=== PATIENT | male | born 1975 | race Caucasian/White ===

== ENCOUNTER 2018-03-02 12:16 | Inpatient (IN) | payer OTHER ==
[~2018-03-02] VITALS: Ht 182.9 cm; Wt 208.9 kg
--- NOTE | ~2018-03-02 | MORECARE ---
CASE MANAGEMENT DISCHARGE SUMMARY PATIENT: HUMBERTO BATES UNIT: [id number] ADM DATE: 03/04/18 AGE: 42 : [birth year] SEX: M ROOM/BED: D.2208 AUTHOR: SEBASTIÁN TURNER PHYSICIAN: REFERRING PHYSICIAN: MARIA R ELIZABETH MD DATE OF SERVICE: 03/07/18 Discharge Plan Patient Name: HUMBERTO BATES Facility: [facility]:[place] : 1975 Planned Disposition: Home Health Service Anticipated Discharge Date: Discharge Date: 03/06/2018 Expected LOS: Initial Reviewer: [email or web address] Initial Review Date: 03/02/2018 Generated: 03/07/18 12:26 pm Comments DCP- Discharge Planning Updated by [email or web address]: Nai Crowell on 03/07/18 10:[address] Lina with [facility] called and stated that he has a 10,000.00 deductible and then a 30% co pay, she called the patient and he did not want home health, nor did he want to pay anything. DCP- Discharge Planning Updated by [email or web address]: Nai Crowell on 03/06/18 1:[address] RECEIVED A CALL FROM [facility] STATING THAT THEY DO NOT TAKE HIS INSURANCE, REFERRAL SENT TO [email or web address] DCP- Discharge Planning Updated by [email or web address]: Nai Crowell on 03/06/18 9:[address] Patient Name: HUMBERTO BATES Admission Status: ER Accout number: [id number] Admission Date: 03-04-2018 : 1975 Admission Diagnosis:ACUTE PYELONEPHRITIS Attending: MARIA R ELIZABETH Current LOS: 2 Anticipated DC Date: Planned Disposition: Home Health Service Primary Insurance: [facility] [employer] Discharge Planning Comments: CM met with patient to assess discharge planning needs. Patient lives independently with his mother and father. He stated that he does not use or need any DME. He will get a glucometer when he is discharged. His mother will be his class a regional drivers home. He stated his home is safe to return. He will be set up with home health. PEGGY with [facility]. I will fax clinical to them. CM will continue to follow and assist with DC planning Rounding Machine Operator: Nai Crowell DCP- Discharge Planning Updated by [email or web address]: Kelsi Gardner on 03/03/18 3:[address] LATE ENTRY 1445 DISCHARGE PLANNING CONSULT RECEIVED. PATIENT SCHEDULED FOR SURGERY FOR 2 DAYS. SURGERY SCHEDULE CANNOT ACCOMMODATE. HE IS SCHEDULED AGAIN TOMORROW. CM WILL ASSESS TOMORROW DUE TO NUMBER OF DISCHARGES FOR TODAY. CM NOTED PATIENT'S PULSE HAS BEEN PRIMARY BETWEEN 120- MID 130'S. CM SPOKE WITH PRIMARY NURSE AND TYPE ROLLING MACHINE OPERATOR. PATIENT IS ON TELEMETRY. NO REFERENCE BY MD'S AT THIS TIME. CM SPOKE WITH DR ELIZABETH HE WAS ROUNDING THIS PM. HE WAS NOT COGNIZANT AT THIS TIME. EKG ORDERED. HE IS IN HOUSE AND WILL SEE THE PATIENT. CM TO FOLLOW FOR DISCHARGE PLANNING. PATIENT REPORTEDLY LIVES WITH HIS PARENTS. CM TO ASSESS AND ASSIST W/ DISCHARGE PLANS. DCPIA - Discharge Planning Initial Assessment Updated by [email or web address]: Nai Crowell on 03/06/18 10:25 am * Is the patient Alert and Oriented? Yes * How many steps to enter\exit or inside your home? FEW * PCP CLARA * Pharmacy [facility] * Preadmission Environment Home with Family * ADLs Independent * Equipment None * List name and contact numbers for known caregivers / representatives who currently or will assist patient after discharge: LILY BATES [phone] * Verbal permission to speak to the caregivers and representatives has been obtained from the patient. N/A * Community resources currently utilized None * Additional services required to return to the preadmission environment? Yes * Can the patient safely return to the preadmission environment? Yes * Has this patient been hospitalized within the prior 30 days at any hospital? No Last DP export: 03/06/18 1:44 Patient Name: HUMBERTO BATES Page 02253 at 1126 All edits/amendments must be made on the electronic document DICTATION DATE: 03/07/18 112 NETWORK ADMINISTRATOR: MAO 03/07/18 112 RPT#: [id number] DC DATE:03/06/18 STATUS: DIS IN [facility] [address] [place] [address] END OF REPORT
--- NOTE | ~2018-03-02 | MORECARE ---
CASE MANAGEMENT DISCHARGE SUMMARY PATIENT: HUMBERTO BATES UNIT: [id number] ADM DATE: 03/04/18 AGE: 42 : [birth year] SEX: M ROOM/BED: D.2208 AUTHOR: SEBASTIÁN TURNER PHYSICIAN: REFERRING PHYSICIAN: MARIA R ELIZABETH MD DATE OF SERVICE: 03/06/18 Discharge Plan Patient Name: HUMBERTO BATES Facility: [facility]:[place] : 1975 Planned Disposition: Home Health Service Anticipated Discharge Date: Discharge Date: 03/06/2018 Expected LOS: Initial Reviewer: [email or web address] Initial Review Date: 03/02/2018 Generated: 03/06/18 3:44 pm Comments DCP- Discharge Planning Updated by [email or web address]: Nai Crowell on 03/06/18 1:[address] RECEIVED A CALL FROM [facility] STATING THAT THEY DO NOT TAKE HIS INSURANCE, REFERRAL SENT TO [facility] DCP- Discharge Planning Updated by [email or web address]: Nai Crowell on 03/06/18 9:[address] Patient Name: HUMBERTO BATES Admission Status: ER Accout number: [id number] Admission Date: 03-04-2018 : 1975 Admission Diagnosis:ACUTE PYELONEPHRITIS Attending: MARIA R ELIZABETH Current LOS: 2 Anticipated DC Date: Planned Disposition: Home Health Service Primary Insurance: [facility] [employer] RU[employer] Discharge Planning Comments: CM met with patient to assess discharge planning needs. Patient lives independently with his mother and father. He stated that he does not use or need any DME. He will get a glucometer when he is discharged. His mother will be his lifter/driver home. He stated his home is safe to return. He will be set up with [facility] health. PEGGY with [facility]. I will fax clinical to them. CM will continue to follow and assist with DC planning Field Gauger: Nai Crowell DCP- Discharge Planning Updated by [email or web address]: Kelsi Gardner on 03/03/18 3:[address] LATE ENTRY 8442 DISCHARGE PLANNING CONSULT RECEIVED. PATIENT SCHEDULED FOR SURGERY FOR 2 DAYS. SURGERY SCHEDULE CANNOT ACCOMMODATE. HE IS SCHEDULED AGAIN TOMORROW. CM WILL ASSESS TOMORROW DUE TO NUMBER OF DISCHARGES FOR TODAY. CM NOTED PATIENT'S PULSE HAS BEEN PRIMARY BETWEEN 120- MID 130'S. CM SPOKE WITH PRIMARY NURSE AND LANDSCAPING MANAGER. PATIENT IS ON TELEMETRY. NO REFERENCE BY MD'S AT THIS TIME. CM SPOKE WITH DR ELIZABETH HE WAS ROUNDING THIS PM. HE WAS NOT COGNIZANT AT THIS TIME. EKG ORDERED. HE IS IN HOUSE AND WILL SEE THE PATIENT. CM TO FOLLOW FOR DISCHARGE PLANNING. PATIENT REPORTEDLY LIVES WITH HIS PARENTS. CM TO ASSESS AND ASSIST W/ DISCHARGE PLANS. DCPIA - Discharge Planning Initial Assessment Updated by [email or web address]: Nai Crowell on 03/06/18 10:25 am * Is the patient Alert and Oriented? Yes * How many steps to enter\exit or inside your home? FEW * PCP CLARA * Pharmacy [facility] * Preadmission Environment Home with Family * ADLs Independent * Equipment None * List name and contact numbers for known caregivers / representatives who currently or will assist patient after discharge: LILY BATES [phone] * Verbal permission to speak to the caregivers and representatives has been obtained from the patient. N/A * Community resources currently utilized None * Additional services required to return to the preadmission environment? Yes * Can the patient safely return to the preadmission environment? Yes * Has this patient been hospitalized within the prior 30 days at any hospital? No External Providers External Provider: [facility] Next Contact Date: Service Request Date: Service Type: Resolution: Reviewer: Comments: Last DP export: 03/06/18 9:41 Patient Name: HUMBERTO BATES Page [id number] at 1444 All edits/amendments must be made on the electronic document DICTATION DATE: 03/06/181443 CONVEYOR LINE BAKERY WORKER: MAO 03/06/18 144 RPT#: [id number] DC DATE:03/06/18 STATUS: DIS IN [facility] [address] [place] [address] END OF REPORT
--- NOTE | ~2018-03-02 | MORECARE ---
CASE MANAGEMENT DISCHARGE SUMMARY PATIENT: HUMBERTO BATES UNIT: [id number] ADM DATE: 03/04/18 AGE: 42 : [birth year] SEX: M ROOM/BED: D.2208 AUTHOR: SEBASTIÁN TURNER PHYSICIAN: REFERRING PHYSICIAN: MARIA R ELIZABETH MD DATE OF SERVICE: 03/06/18 Discharge Plan Patient Name: HUMBERTO BATES Facility: [facility]:[place] : 1975 Planned Disposition: Home Health Service Anticipated Discharge Date: Discharge Date: Expected LOS: Initial Reviewer: [email or web address] Initial Review Date: 03/02/2018 Generated: 03/06/18 11:40 am Comments DCP- Discharge Planning Updated by [email or web address]: Nai Crowell on 03/06/18 9:[address] Patient Name: HUMBERTO BATES Admission Status: ER Accout number: [id number] Admission Date: 03-04-2018 : 1975 Admission Diagnosis:ACUTE PYELONEPHRITIS Attending: MARIA R ELIZABETH Current LOS: 2 Anticipated DC Date: Planned Disposition: Home Health Service Primary Insurance: [facility] [employer] Discharge Planning Comments: CM met with patient to assess discharge planning needs. Patient lives independently with his mother and father. He stated that he does not use or need any DME. He will get a glucometer when he is discharged. His mother will be his reefer truck driver home. He stated his home is safe to return. He will be set up with home health. PEGGY with [facility] health. I will fax clinical to them. SUDHAKAR will continue to follow and assist with DC planning Guard Driver: Nai Crowell DCP- Discharge Planning Updated by [email or web address]: Kelsi Gardner on 03/03/18 3:[address] LATE ENTRY 5870 DISCHARGE PLANNING CONSULT RECEIVED. PATIENT SCHEDULED FOR SURGERY FOR 2 DAYS. SURGERY SCHEDULE CANNOT ACCOMMODATE. HE IS SCHEDULED AGAIN TOMORROW. CM WILL ASSESS TOMORROW DUE TO NUMBER OF DISCHARGES FOR TODAY. CM NOTED PATIENT'S PULSE HAS BEEN PRIMARY BETWEEN 120- MID 130'S. CM SPOKE WITH PRIMARY NURSE AND PUBLIC RELATIONS COUNSELOR. PATIENT IS ON TELEMETRY. NO REFERENCE BY MD'S AT THIS TIME. CM SPOKE WITH DR ELIZABETH HE WAS ROUNDING THIS PM. HE WAS NOT COGNIZANT AT THIS TIME. EKG ORDERED. HE IS IN HOUSE AND WILL SEE THE PATIENT. CM TO FOLLOW FOR DISCHARGE PLANNING. PATIENT REPORTEDLY LIVES WITH HIS PARENTS. CM TO ASSESS AND ASSIST W/ DISCHARGE PLANS. DCPIA - Discharge Planning Initial Assessment Updated by [email or web address]: Nai Crowell on 03/06/18 10:25 am * Is the patient Alert and Oriented? Yes * How many steps to enter\exit or inside your home? FEW * PCP CLARA * Pharmacy [facility] * Preadmission Environment Home with Family * ADLs Independent * Equipment None * List name and contact numbers for known caregivers / representatives who currently or will assist patient after discharge: LILY BATES [phone] * Verbal permission to speak to the caregivers and representatives has been obtained from the patient. N/A * Community resources currently utilized None * Additional services required to return to the preadmission environment? Yes * Can the patient safely return to the preadmission environment? Yes * Has this patient been hospitalized within the prior 30 days at any hospital? No Last DP export: 03/06/18 9:28 Patient Name: HUMBERTO BATES Page 53531 at 1041 All edits/amendments must be made on the electronic document DICTATION DATE: 03/06/18 1040 MOVIE STAR: MAO 03/06/18 1040 RPT#: [id number] DE DATE: STATUS: ADM IN [facility] [address] [place] [address] END OF REPORT
--- NOTE | ~2018-03-02 | HP ---
PATIENT: HUMBERTO BATES MEDICAL RECORD: [id number] ACCOUNT: [id number] LOCATION:D.MS [address] : [birth year] ADMISSION DATE: 03/02/18 PCP: MARIA R ELIZABETH MD HISTORY AND PHYSICAL EXAMINATION DATE OF ADMISSION: 03/02/2018 CHIEF COMPLAINT: Cough, fever, chills, right flank pain. HISTORY: This is a 42-year-old morbidly obese white male, who states he started having a cough over a week ago. In the last day or two, he has noted fevers and right flank pain as well. He has had some urinary frequency, but states he has had little urinary output. Apparently, he went to [place] first and then was brought here due to his illness. His temperature was 102.4. Heart rate was 125 down in the ER. A CT of the abdomen and pelvis showed a 2-mm calculus at the right ureterovesical junction with some noted hydronephrosis. He also has multiple bilateral intrarenal calculi that are nonobstructing at this time. Urine was dark yellow and cloudy with some protein and blood and a few bacteria. His white count was elevated. His BUN was 20, his creatinine 2.6. He is admitted for further care. PAST MEDICAL AND SURGICAL HISTORY: He has morbid obesity. He reports a history of kidney stones over 15 years ago. PAST SURGICAL HISTORY: Appendectomy, inguinal hernia repair as a child, tubes in his ears as a child. HOME MEDICATIONS: None. DRUG ALLERGIES: None. SOCIAL HISTORY: He is not working. He lives with his parents. He is not . HABITS: Never smoked. No alcohol or drugs. FAMILY HISTORY: Father is alive with diabetes and hypertension. Mother is alive with osteoarthritis and hypertension. REVIEW OF SYSTEMS: GENERAL: No major weight changes. HEENT: No particular sinus or allergy problems. RESPIRATORY: No history of emphysema or asthma. CARDIAC: No chest pain or palpitations. GASTROINTESTINAL: Denies diarrhea, constipation, or heartburn. GENITOURINARY: Remote history of kidney stones. MUSCULOSKELETAL: No significant joint aches or pains. NEUROLOGIC: No migraines or seizures. PSYCHIATRIC: Denies depression or melancholia. PHYSICAL EXAMINATION: VITAL SIGNS: Temperature 102.4, heart rate 125, blood pressure 130/85, O2 sat 95% on room air. GENERAL: He is morbidly obese. Does not appear in acute distress at this time. HEENT: Grossly within normal limits. HISTORY AND PHYSICAL [id number] HUMBERTO BATES NECK: Supple. No JVD or bruit. HEART: Tachycardia without murmur. LUNGS: Clear. ABDOMEN: Obese. No significant tenderness to palpation. No guarding. No rebound. No mass. BACK: With some right CVA tenderness. LABORATORY WORK: CBC with a white count of 15,500, hemoglobin 13.2, hematocrit 38.1, platelets number 102,000. Basic metabolic panel is all okay except his creatinine is elevated at 2.6. Liver functions are all okay. Influenza A and B are both negative. Urinalysis shows dark yellow, cloudy urine with 2+ protein, 1+ blood, trace leukocyte esterase, 0-5 red blood cells, 5-10 white blood cells, few bacteria. Chest x-ray shows no active disease. CT of the abdomen and pelvis showed a 2-mm calculus at the right ureterovesical junction with hydronephrosis noted. There were multiple bilateral intrarenal calculi. ASSESSMENT: 1. Right ureterovesical stone. 2. Fever. 3. Elevated white blood cell count. 4. Presumed acute kidney injury. 5. Morbid obesity. PLAN: Dr. Scott has been consulted and he has already seen the patient. We will give patient IV fluids, Flomax, IV Rocephin. Obtain urine and blood cultures. Zofran p.r.n. and pain control. Other tests and procedures as warranted. TRANSINT:[id number] Voice Confirmation ID: [id number] DOCUMENT ID: [id number] MARIA R ELIZABETH MD at 2336 CC: [id number] DICTATION DATE: 03/02/182016 SOFT SUGAR CUTTER: 03/02/182058 ADM IN [facility] [address] [place] [address]
--- NOTE | ~2018-03-02 | MORECARE ---
CASE MANAGEMENT DISCHARGE SUMMARY PATIENT: HUMBERTO BATES UNIT: [id number] ADM DATE: 03/04/18 AGE: 42 : [birth year] SEX: M ROOM/BED: D.2208 AUTHOR: YUE,DOC PHYSICIAN: REFERRING PHYSICIAN: MARIA R ELIZABETH MD DATE OF SERVICE: 03/06/18 Discharge Plan Patient Name: HUMBERTO BATES Facility: [facility]:[place] : 1975 Planned Disposition: Home Health Service Anticipated Discharge Date: Discharge Date: Expected LOS: Initial Reviewer: [email or web address] Initial Review Date: 03/02/2018 Generated: 03/06/18 11:28 am Comments DCP- Discharge Planning Updated by [email or web address]: Kelsi Gardner on 03/03/18 3:[address] LATE ENTRY 1445 DISCHARGE PLANNING CONSULT RECEIVED. PATIENT SCHEDULED FOR SURGERY FOR 2 DAYS. SURGERY SCHEDULE CANNOT ACCOMMODATE. HE IS SCHEDULED AGAIN TOMORROW. CM WILL ASSESS TOMORROW DUE TO NUMBER OF DISCHARGES FOR TODAY. CM NOTED PATIENT'S PULSE HAS BEEN PRIMARY BETWEEN 120- MID 130'S. CM SPOKE WITH PRIMARY NURSE AND AVIATION SURVIVAL TECHNICIAN. PATIENT IS ON TELEMETRY. NO REFERENCE BY MD'S AT THIS TIME. CM SPOKE WITH DR ELIZABETH HE WAS ROUNDING THIS PM. HE WAS NOT COGNIZANT AT THIS TIME. EKG ORDERED. HE IS IN HOUSE AND WILL SEE THE PATIENT. CM TO FOLLOW FOR DISCHARGE PLANNING. PATIENT REPORTEDLY LIVES WITH HIS PARENTS. CM TO ASSESS AND ASSIST W/ DISCHARGE PLANS. DCPIA - Discharge Planning Initial Assessment Updated by [email or web address]: Nai Crowell on 03/06/18 10:25 am * Is the patient Alert and Oriented? Yes * How many steps to enter\exit or inside your home? FEW * PCP CLARA * Pharmacy [facility] * Preadmission Environment Home with Family * ADLs Independent * Equipment None * List name and contact numbers for known caregivers / representatives who currently or will assist patient after discharge: LILY BATES [phone] * Verbal permission to speak to the caregivers and representatives has been obtained from the patient. N/A * Community resources currently utilized None * Additional services required to return to the preadmission environment? Yes * Can the patient safely return to the preadmission environment? Yes * Has this patient been hospitalized within the prior 30 days at any hospital? No Last DP export: 03/06/18 8:59 Patient Name: HUMBERTO BATES Page 57526 at 1029 All edits/amendments must be made on the electronic document DICTATION DATE: 03/06/18 1028 PROMOTIONAL ADVERTISING ASSISTANT: MAO 03/06/18 1028 RPT#: [id number] DC DATE: STATUS: ADM IN [facility] [address] [place] [address] END OF REPORT
--- NOTE | ~2018-03-02 | MORECARE ---
CASE MANAGEMENT DISCHARGE SUMMARY PATIENT: HUMBERTO BATES UNIT: [id number] ADM DATE: 03/04/18 AGE: 42 : [birth year] SEX: M ROOM/BED: D.2208 AUTHOR: SEBASTIÁN TURNER PHYSICIAN: REFERRING PHYSICIAN: MARIA R ELIZABETH MD DATE OF SERVICE: 03/08/18 Discharge Plan Patient Name: HUMBERTO BATES Facility: [facility]:[place] : 1975 Planned Disposition: Home Health Service Anticipated Discharge Date: Discharge Date: 03/06/2018 Expected LOS: Initial Reviewer: [email or web address] Initial Review Date: 03/02/2018 Generated: 03/08/18 1:18 pm Comments DCP- Discharge Planning Updated by [email or web address]: Nai Crowell on 03/07/18 10:[address] Lina with [facility] called and stated that he has a 10,000.00 deductible and then a 30% co pay, she called the patient and he did not want home health, nor did he want to pay anything. DCP- Discharge Planning Updated by [email or web address]: Nai Crowell on 03/06/18 1:[address] RECEIVED A CALL FROM [facility] STATING THAT THEY DO NOT TAKE HIS INSURANCE, REFERRAL SENT TO [facility] DCP- Discharge Planning Updated by [email or web address]: Nai Crowell on 03/06/18 9:[address] Patient Name: HUMBERTO BATES Admission Status: ER Accout number: [id number] Admission Date: 03-04-2018 : 1975 Admission Diagnosis:ACUTE PYELONEPHRITIS Attending: MARIA R ELIZABETH Current LOS: 2 Anticipated DC Date: Planned Disposition: Home Health Service Primary Insurance: [facility] [employer] RU[employer] Discharge Planning Comments: CM met with patient to assess discharge planning needs. Patient lives independently with his mother and father. He stated that he does not use or need any DME. He will get a glucometer when he is discharged. His mother will be his minibus driver home. He stated his home is safe to return. He will be set up with home health. PEGGY with [email or web address]. I will fax clinical to them. CM will continue to follow and assist with DC planning Real Estate Instructor: Nai Crowell DCP- Discharge Planning Updated by [email or web address]: Kelsi Gardner on 03/03/18 3:[address] LATE ENTRY 1445 DISCHARGE PLANNING CONSULT RECEIVED. PATIENT SCHEDULED FOR SURGERY FOR 2 DAYS. SURGERY SCHEDULE CANNOT ACCOMMODATE. HE IS SCHEDULED AGAIN TOMORROW. CM WILL ASSESS TOMORROW DUE TO NUMBER OF DISCHARGES FOR TODAY. CM NOTED PATIENT'S PULSE HAS BEEN PRIMARY BETWEEN 120- MID 130'S. CM SPOKE WITH PRIMARY NURSE AND OCCUP THERAPIST. PATIENT IS ON TELEMETRY. NO REFERENCE BY MD'S AT THIS TIME. CM SPOKE WITH DR ELIZABETH HE WAS ROUNDING THIS PM. HE WAS NOT COGNIZANT AT THIS TIME. EKG ORDERED. HE IS IN HOUSE AND WILL SEE THE PATIENT. CM TO FOLLOW FOR DISCHARGE PLANNING. PATIENT REPORTEDLY LIVES WITH HIS PARENTS. CM TO ASSESS AND ASSIST W/ DISCHARGE PLANS. DCPIA - Discharge Planning Initial Assessment Updated by [email or web address]: Nai Crowell on 03/06/18 10:25 am * Is the patient Alert and Oriented? Yes * How many steps to enter\exit or inside your home? FEW * PCP CLARA * Pharmacy [facility] * Preadmission Environment Home with Family * ADLs Independent * Equipment None * List name and contact numbers for known caregivers / representatives who currently or will assist patient after discharge: LILY BATES [phone] * Verbal permission to speak to the caregivers and representatives has been obtained from the patient. N/A * Community resources currently utilized None * Additional services required to return to the preadmission environment? Yes * Can the patient safely return to the preadmission environment? Yes * Has this patient been hospitalized within the prior 30 days at any hospital? No Last DP export: 03/07/18 10:26 Patient Name: HUMBERTO BATES Page 48804 at 1218 All edits/amendments must be made on the electronic document DICTATION DATE: 03/08/187 CHARGE HAND: MAO 03/08/187 RPT#: [id number] DC DATE:03/06/18 STATUS: DIS IN [facility] [address] [place] [address] END OF REPORT
--- NOTE | ~2018-03-02 | MORECARE ---
CASE MANAGEMENT DISCHARGE SUMMARY PATIENT: HUMBERTO BATES UNIT: [id number] ADM DATE: 03/04/18 AGE: 42 : [birth year] SEX: M ROOM/BED: D.2208 AUTHOR: SEBASTIÁN TURNER PHYSICIAN: REFERRING PHYSICIAN: MARIA R ELIZABETH MD DATE OF SERVICE: 03/06/18 Discharge Plan Patient Name: HUMBERTO BATES Facility: [facility]:[place] : 1975 Planned Disposition: Home Health Service Anticipated Discharge Date: Discharge Date: Expected LOS: Initial Reviewer: [email or web address] Initial Review Date: 03/02/2018 Generated: 03/06/18 10:59 am Comments DCP- Discharge Planning Updated by [email or web address]: Kelsi Gardner on 03/03/18 3:[address] LATE ENTRY 7712 DISCHARGE PLANNING CONSULT RECEIVED. PATIENT SCHEDULED FOR SURGERY FOR 2 DAYS. SURGERY SCHEDULE CANNOT ACCOMMODATE. HE IS SCHEDULED AGAIN TOMORROW. CM WILL ASSESS TOMORROW DUE TO NUMBER OF DISCHARGES FOR TODAY. CM NOTED PATIENT'S PULSE HAS BEEN PRIMARY BETWEEN 120- MID 130'S. CM SPOKE WITH PRIMARY NURSE AND LEVI MAKER. PATIENT IS ON TELEMETRY. NO REFERENCE BY MD'S AT THIS TIME. CM SPOKE WITH DR ELIZABETH HE WAS ROUNDING THIS PM. HE WAS NOT COGNIZANT AT THIS TIME. EKG ORDERED. HE IS IN HOUSE AND WILL SEE THE PATIENT. CM TO FOLLOW FOR DISCHARGE PLANNING. PATIENT REPORTEDLY LIVES WITH HIS PARENTS. CM TO ASSESS AND ASSIST W/ DISCHARGE PLANS. External Providers External Provider: [facility] Next Contact Date: Service Request Date: Service Type: Resolution: Reviewer: Comments: Patient Name: HUMBERTO BAETS Page 47916 at 0959 All edits/amendments must be made on the electronic document DICTATION DATE: 03/06/18957 MEDICAL ASSISTANT SUPERVISOR: MAO 03/06/18957 RPT#: [id number] DC DATE: STATUS: ADM IN [facility] [address] [place] [address] END OF REPORT
[2018-03-02 13:07] LABS: ANION GAP 15.6 mmol/L (8-16); BILIRUBIN - TOTAL 0.99 mg/dL (0.2-1.3); CALCIUM 8.5 mg/dL (8.5-10.1); CARBON DIOXIDE 23.3 mmol/L (21.0-32.0); CREATININE - SERUM 2.6 mg/dL (0.6-1.3); POTASSIUM - SERUM 3.9 mmol/L (3.5-5.1); PROTEIN - SERUM 7.8 g/dL (6.4-8.2)
[2018-03-02 13:23] LABS: BASOPHILS 0 % (0-2); EOSINOPHILS 0 % (0-7); HEMATOCRIT 38.1 % (42.0-54.0); HEMOGLOBIN 13.2 g/dL (13.5-17.5); LYMPHOCYTES 4.7 % (15-50); MCH 30.2 pg (26.0-34.0); MCHC 34.6 g/dL (31.0-37.0); MCV 87.2 fL (80.0-100.0); MEAN PLATELET VOLUME 11.7 fL (7.4-10.4); MONOCYTES 6.2 % (2-11); NEUTROPHILS 88.7 % (40-80); PLATELET COUNT 102 10x3/uL (130-400); RBC 4.37 10x6/uL (4.20-6.10); RDW 15.1 % (11.5-14.5); WBC 15.5 10x3/uL (4.8-10.8)
[2018-03-02 13:24] LABS: IMMATURE GRANULOCYTES 0.4 % (0-5)
[2018-03-02 13:53] LABS: APPEARANCE CLOUDY (CLEAR); BILIRUBIN NEGATIVE (NEGATIVE); COLOR DK YELLOW (YELLOW); GLUCOSE NEGATIVE (NEGATIVE); KETONE NEGATIVE (NEGATIVE); NITRITE NEGATIVE (NEGATIVE); PROTEIN 2+ mg/dL (NEGATIVE)
[2018-03-02 13:54] LABS: BACTERIA FEW /hpf (NONE SEEN); EPITHELIAL CELLS OCC /hpf (0-5); RED CELLS - URINE 0-5 /hpf (0-5)
[2018-03-02 17:35] VITALS: BP 128/84
[2018-03-02 20:00] VITALS: BP 164/77
[2018-03-02 21:51] VITALS: BP 164/77; Ht 182.9 cm; Wt 208.9 kg
[2018-03-03] VITALS (8 sets, daily range): BP systolic 102–142; BP diastolic 68–87
[2018-03-03 05:32] LABS: BASOPHILS 0.1 % (0-2); EOSINOPHILS 0.1 % (0-7); HEMOGLOBIN 11.5 g/dL (13.5-17.5); IMMATURE GRANULOCYTES 0.5 % (0-5); LYMPHOCYTES 6.2 % (15-50); MCH 29.7 pg (26.0-34.0); MCHC 33.8 g/dL (31.0-37.0); MCV 87.9 fL (80.0-100.0); MEAN PLATELET VOLUME 12.5 fL (7.4-10.4); MONOCYTES 6.7 % (2-11); NEUTROPHILS 86.4 % (40-80); RBC 3.87 10x6/uL (4.20-6.10)
[2018-03-03 05:37] LABS: PLATELET COUNT 71 10x3/uL (130-400); WBC 9.2 10x3/uL (4.8-10.8)
[2018-03-03 05:45] LABS: ANION GAP 17.2 mmol/L (8-16); CARBON DIOXIDE 21.6 mmol/L (21.0-32.0); CREATININE - SERUM 2.7 mg/dL (0.6-1.3); POTASSIUM - SERUM 3.8 mmol/L (3.5-5.1)
[2018-03-03 05:52] LABS: INR 1.43 (0.85-1.17); PROTIME 16.9 SECONDS (11.6-15.0)
[2018-03-04 04:00] VITALS: BP 120/81
[2018-03-04 04:38] LABS: HEMATOCRIT 33.4 % (42.0-54.0); MCH 29.4 pg (26.0-34.0); MCHC 32.9 g/dL (31.0-37.0); MCV 89.3 fL (80.0-100.0); MEAN PLATELET VOLUME 12.4 fL (7.4-10.4); RBC 3.74 10x6/uL (4.20-6.10); RDW 15.3 % (11.5-14.5); WBC 7.6 10x3/uL (4.8-10.8)
[2018-03-04 04:47] LABS: CALCIUM 7.9 mg/dL (8.5-10.1); CARBON DIOXIDE 23.7 mmol/L (21.0-32.0); CREATININE - SERUM 2.4 mg/dL (0.6-1.3); POTASSIUM - SERUM 3.7 mmol/L (3.5-5.1)
[2018-03-04 08:42] VITALS: BP 111/70
[2018-03-04 12:25] VITALS: BP 143/79
[2018-03-04 15:54] LABS: APPEARANCE CLEAR (CLEAR); BILIRUBIN NEGATIVE (NEGATIVE); COLOR YELLOW (YELLOW); GLUCOSE NEGATIVE (NEGATIVE); KETONE NEGATIVE (NEGATIVE); NITRITE NEGATIVE (NEGATIVE); PROTEIN 1+ mg/dL (NEGATIVE); SPECIFIC GRAVITY 1.015 (1.005-1.020)
[2018-03-04 15:55] LABS: RED CELLS - URINE 0-5 /hpf (0-5)
[2018-03-04 15:56] LABS: BACTERIA FEW /hpf (NONE SEEN); EPITHELIAL CELLS 0-5 /hpf (0-5)
[2018-03-04 16:40] VITALS: BP 135/83
[2018-03-04 20:00] VITALS: BP 126/83
[2018-03-05] VITALS: BP 157/80
[2018-03-05 05:00] VITALS: BP 132/93
[2018-03-05 06:10] LABS: HEMATOCRIT 34.1 % (42.0-54.0); HEMOGLOBIN 11.3 g/dL (13.5-17.5); MCH 29.7 pg (26.0-34.0); MCHC 33.1 g/dL (31.0-37.0); MCV 89.7 fL (80.0-100.0); MEAN PLATELET VOLUME 12.8 fL (7.4-10.4); RDW 15.4 % (11.5-14.5); WBC 6.8 10x3/uL (4.8-10.8)
[2018-03-05 06:22] LABS: ANION GAP 15.3 mmol/L (8-16); CALCIUM 8.4 mg/dL (8.5-10.1); CARBON DIOXIDE 22.3 mmol/L (21.0-32.0); POTASSIUM - SERUM 3.6 mmol/L (3.5-5.1)
[2018-03-05 06:32] LABS: PLATELET COUNT 93 10x3/uL (130-400)
[2018-03-05 07:44] LABS: PLATELET ESTIMATE DECREASED
[2018-03-05 08:21] VITALS: BP 141/78
[2018-03-05 12:28] VITALS: BP 139/85
[2018-03-05 16:50] VITALS: BP 146/91
[2018-03-05 20:00] VITALS: BP 122/69
[2018-03-06] VITALS: BP 108/75
[2018-03-06 04:00] VITALS: BP 122/68
[2018-03-06 04:53] LABS: HEMATOCRIT 33.5 % (42.0-54.0); HEMOGLOBIN 10.9 g/dL (13.5-17.5); MCH 29.4 pg (26.0-34.0); MCHC 32.5 g/dL (31.0-37.0); MCV 90.3 fL (80.0-100.0); MEAN PLATELET VOLUME 12.4 fL (7.4-10.4); RBC 3.71 10x6/uL (4.20-6.10); RDW 15.5 % (11.5-14.5); WBC 7.1 10x3/uL (4.8-10.8)
[2018-03-06 05:14] LABS: ANION GAP 13.4 mmol/L (8-16); CALCIUM 8.2 mg/dL (8.5-10.1); CARBON DIOXIDE 25.7 mmol/L (21.0-32.0); CREATININE - SERUM 1.9 mg/dL (0.6-1.3); POTASSIUM - SERUM 4.1 mmol/L (3.5-5.1)
[2018-03-06 08:34] VITALS: BP 129/78
[2018-03-06] MEDS ORDERED: COREG 3.1253.125 MG PO (08:45)
[2018-03-06] MEDS ORDERED: CIPRO250 MG PO (08:46)
== END 2018-03-06 11:57 | disposition home or self-care (01) | DRG 683 ==
LOC: D.ER 12:16 → D.MS 18:30 → OBSVTIME 18:31 → D.MS 03-04 12:48
PROVIDERS: Family Medicine
DX: N17.9 Acute kidney failure, unspecified (principal); Z68.43 Body mass index [BMI] 50.0-59.9, adult; N10 Acute pyelonephritis; N13.6 Pyonephrosis; Z87.442 Personal history of urinary calculi; E66.01 Morbid (severe) obesity due to excess calories; E11.9 Type 2 diabetes mellitus without complications; D69.6 Thrombocytopenia, unspecified